=== PATIENT | male | born 1985 | race Caucasian/White ===

== ENCOUNTER 2021-11-16 15:27 | Emergency (ER) | payer OTHER, MEDICAID, SELFPAY ==
[2021-11-16 15:33] VITALS: BP 153/68; PULSE 88; RESP 18; TEMP 36.2; O2SAT 97; BMI 26.7
--- NOTE | 2021-11-16 16:25 | ED.WOUNDLAC ---
HPI - Wound/Laceration <BOBBY Dalton Last Filed: 11/16/21 17:53> General Chief Complaint: Wound/Laceration Stated Complaint: Left Hand Laceration Time Seen by Provider: 11/16/21 16:19 Source: patient Mode of arrival: Ambulatory History of Present Illness HPI narrative: 36-year-old male presents to the emergency department due to a left hand laceration to the webspace between the left thumb and 2nd digit onset roughly 24 hours ago. States he was working with a piece of machinery when he cut his hand. Denies any changes in range of motion of the fingers or hand or thumb history is denies any fevers, nausea, vomiting, numbness, or any other concerning signs or symptoms. Tetanus is not up-to-date. Review of Systems <BOBBY Dalton Last Filed: 11/16/21 17:53> Review of Systems Narrative: GENERAL: Denies chills, fatigue, malaise, fever, sweats. HEENT: Denies sinus pain, ear pain, sore throat, difficulty swallowing, dizziness. RESPIRATORY: Denies dyspnea, cough, wheezing, hemoptysis, sputum. CARDIOVASCULAR: Denies chest pain, palpitations, orthopnea, edema, GASTROINTESTINAL: Denies nausea, vomiting, abdominal pain, diarrhea, constipation, melena. : Denies dysuria, frequency, incontinence, hematuria, urinary retention. MUSCULOSKELETAL: Left hand pain, denies change in range of motion of the fingers or hand. SKIN: Left hand laceration NEUROLOGIC: Denies weakness, headache, numbness, change in speech, confusion, seizures, incoordination. PSYCHIATRIC: No concerning psychosocial issues. 12 point review of systems is negative except for those stated above Patient History <BOBBY Dalton Last Filed: 11/16/21 17:53> Social History Smoking Status: Current every day smoker Smoking Status: Current every day smoker Substance Use Type: marijuana Exam <BOBBY Dalton Last Filed: 11/16/21 17:53> Narrative Exam Narrative: GENERAL: Well-developed patient, in mild distress. HEAD: Atraumatic. Normocephalic. EYES: Pupils equal round and reactive. Extraocular motions intact. No scleral icterus. No injection or drainage. ENT: Nose without bleeding, purulent drainage. Throat without erythema, tonsillar hypertrophy or exudate. Airway patent. NECK: Trachea midline. Non tender CARDIOVASCULAR: Regular rate and rhythm without murmurs, gallops, or rubs. RESPIRATORY: Clear to auscultation. Breath sounds equal bilaterally. No wheezes, rales, or rhonchi. GASTROINTESTINAL: Abdomen soft, non-tender, nondistended. EXTREMITIES: No edema or joint tenderness. BACK: Nontender without deformity or crepitance. No flank tenderness. NEURO: AOx3. SKIN: 4 cm laceration to the webspace between the left 2nd and 1st digit. No active bleeding. No changes in range of motion of the thumb, hand, or any of the fingers. Initial Vital Signs Initial Vital Signs: Vital Signs Temperature 97.1 F L 11/16/21 15:33 Pulse Rate 88 11/16/21 15:33 Respiratory Rate 18 11/16/21 15:33 Blood Pressure 153/68 H 11/16/21 15:33 Pulse Oximetry 97 11/16/21 15:33 Oxygen Delivery Method 11/16/21 15:33 <Duane Bliss DO - Last Filed: 11/24/21 20:29> Initial Vital Signs Initial Vital Signs: Vital Signs Temperature 97.1 F L 11/16/21 15:33 Pulse Rate 88 11/16/21 15:33 Respiratory Rate 18 11/16/21 15:33 Blood Pressure 153/68 H 11/16/21 15:33 Pulse Oximetry 97 11/16/21 15:33 Oxygen Delivery Method 11/16/21 15:33 Procedures <BOBBY Dalton Last Filed: 11/16/21 17:53> Laceration Repair Laceration 1: Time of procedure: 17:48 Site: hand (Webspace between 1st and 2nd digit) Side (If applicable): left Size (cm): 4 Description: linear Depth: simple, single layer Local Anesthetic: lidocaine 1% Amount of anesthesia used (mL): 4 Pre-repair: irrigated extensively Skin layer closed with: nylon Skin layer suture size: 5-0 Number of sutures: 4 Technique: simple, interrupted Course <BOBBY Dalton Last Filed: 11/16/21 17:53> Orders Ordered: Discontinued Medications Diphtheria/Tetanus/Acell Pertussis (Tet,Diph,Pertuss(Acell),Vac/Pf 0.5 Ml Syringe) 0.5 ml IM .ONCE ONE Stop: 11/16/21 15:40 Last Admin: 11/16/21 16:28 Dose: 0.5 ml Documented By: MOON Lidocaine/Sodium Bicarbonate (Lido 1%/Sod Bicarb 8.4% (10ml) 10 Ml Syringe) 10 ml INJ NOW ONE Stop: 11/16/21 16:28 Last Admin: 11/16/21 16:29 Dose: 10 ml Documented By: MOON Vital Signs Vital signs: Vital Signs - 8 hr 11/16/21 15:33 Temperature 97.1 F L Pulse Rate 88 Respiratory Rate 18 Blood Pressure 153/68 H Pulse Oximetry 97 Oxygen Delivery Method Room Air <Duane Bliss DO - Last Filed: 11/24/21 20:29> Orders Ordered: Discontinued Medications Diphtheria/Tetanus/Acell Pertussis (Tet,Diph,Pertuss(Acell),Vac/Pf 0.5 Ml Syringe) 0.5 ml IM .ONCE ONE Stop: 11/16/21 15:40 Last Admin: 11/16/21 16:28 Dose: 0.5 ml Documented By: MOON Lidocaine/Sodium Bicarbonate (Lido 1%/Sod Bicarb 8.4% (10ml) 10 Ml Syringe) 10 ml INJ NOW ONE Stop: 11/16/21 16:28 Last Admin: 11/16/21 16:29 Dose: 10 ml Documented By: MOON Vital Signs Vital signs: Vital Signs - 8 hr 11/16/21 15:33 Temperature 97.1 F L Pulse Rate 88 Respiratory Rate 18 Blood Pressure 153/68 H Pulse Oximetry 97 Oxygen Delivery Method Room Air MDM - Wound/Laceration <Wes Valerio PA-C - Last Filed: 11/16/21 17:53> MDM Narrative Medical decision making narrative: 28-year-old male presents emergency department due to left hand laceration. Patient had no changes in range of motion to the fingers or thumb and no concern for tendon injury. Also did not describe any kind of bony and declined x-ray due to low suspicion for fracture. Laceration closed without complications. Antibiotics prescribed for infection prophylaxis due to the nature of the injury. Discharge Plan Departure Patient Disposition: Home Clinical Impression: Laceration Instructions: DI for Laceration Repair Activity Restrictions/Additional Instructions: Thank you for coming to the [facility] Emergency Department today. I am glad we were able to repair the laceration. Please take the antibiotics for infection prophylaxis. UA returned 7-10 says days for suture removal. You may also see your primary care provider for this. I hope you feel better soon. Referrals: Miscellaneous,Doctor, [Primary Care Provider] - Stand Alone Forms: Work Release Note Visit Report Forms: Patient Portal/API <Duane Bliss DO - Last Filed: 11/24/21 20:29> Cosign ED Attending Tataature Attestation: I was immediately available in the department for consultation. This documentation has been reviewed and I agree with assessment and plan. Supervised by Duane Bliss DO
[2021-11-16] MEDS: TET,DIPH,PERTUSS(ACELL),VAC/PF 0.5 ML SYRINGE IM (16:28)
[2021-11-16] MEDS: LIDO 1%/SOD BICARB 8.4% (10ML) 10 ML SYRINGE INJ (16:29)
--- NOTE | 2021-11-16 16:32 | PC.NURSE ---
wound irrigated with ns. cleansed. skin stained with oil
[2021-11-16 18:04] VITALS: BP 146/83; PULSE 81; RESP 18; O2SAT 98
== END 2021-11-16 18:05 | disposition home or self-care (01) ==
PROVIDERS: Emergency Provider Physician Assistant Medical
DX: S61.412A Laceration without foreign body of left hand, initial encounter (principal); W31.9XXA Contact with unspecified machinery, initial encounter; Z23 Encounter for immunization
CPT/HCPCS: 12002; 90471; 99283; 99284; 90715